=== PATIENT | female | born 1965 | race Two or more races ===

== ENCOUNTER 2017-01-08 17:54 | Inpatient (IN) | payer MEDICAID ==
[~2017-01-08] VITALS: Ht 162.6 cm; Wt 82.6 kg
[~2017-01-08 17:54] MED LIST: ASPI81TA10 PO; CLON0.2T PO; GLYB2.5T76 PO; HYDR-2595 PO; LISI-646 PO; LORA1TAB12 PO; METF-314 PO; OMEP20TA44 PO; RANI-226 PO; SIMV10TA84 PO
[2017-01-08] MEDS ORDERED: ONDANSETRON HCL 4 MG/2 ML VIAL IV ONE (19:00)
[2017-01-08] MEDS ORDERED: MORPHINE SULFATE 4 MG/ML SYRG IV ONE (19:00)
[2017-01-08 19:14] LABS: Basophils # (auto) 0.1 uL; Basophils % (auto) 0.4 % (0.0-2.0); Eosinophils # (auto) 0 uL; Eosinophils % (auto) 0.1 % (0.0-7.0); Hematocrit 48.3 % (36.0-46.0); Hemoglobin 16.4 g/dL (12.2-16.2); Lymphocytes # (auto) 1.9 uL; Lymphocytes % (auto) 10.1 % (10.0-50.0); Mean Corpuscular Hemoglobin 30.1 pg (28.0-32.0); Mean Corpuscular Volume 88.4 fL (80.0-100.0); Monocytes # (auto) 0.4 uL; Monocytes % (auto) 2.4 % (0.0-12.0); Neutrophils # (auto) 16.3 uL; Platelet Count (auto) 474 10^3/uL (140-450); White Blood Cell 18.7 10^3/uL (4.4-10.8)
[2017-01-08 19:35] LABS: Albumin 4.7 g/dL (3.4-5.0); BUN/Creatinine Ratio 8.7; Bilirubin, Total 0.6 mg/dL (0.2-1.0); Calcium 9.8 mg/dL (8.5-10.1); Magnesium 1.7 mg/dL (1.6-2.6); Potassium 3.4 mmol/L (3.5-5.1); Total Protein 8.8 g/dL (6.4-8.2)
[2017-01-08 19:55] LABS: Urine Bilirubin Negative (Negative); Urine Blood TRACE /uL (Negative); Urine Color Yellow (Yellow); Urine Mucus FEW (None Seen); Urine Nitrite Negative (Negative); Urine RBC 1 /hpf (0 - 4); Urine Squamous Epithelial Cell FEW /hpf (<5); Urine Urobilinogen Normal (Negative)
[2017-01-08 19:56] LABS: Urine Glucose 1+ mg/dL (Normal); Urine Ketone 1+ (Negative)
[2017-01-08] MEDS ORDERED: diphenhdrAMINE HCL 50 MG/1 ML VL ONE (20:28)
[2017-01-08] MEDS ORDERED: diphenhdrAMINE HCL 50 MG/1 ML VL IV ONE (20:45)
[2017-01-08] MEDS ORDERED: methylPREDNISolone SOD SUCC 125 MG/2 ML VL IV ONE (21:00)
[2017-01-08] MEDS ORDERED: cloNIDine HCL 0.1 MG TAB ONE (21:22)
[2017-01-08] MEDS ORDERED: cloNIDine HCL 0.1 MG TAB PO ONE (21:30)
[2017-01-08] MEDS ORDERED: LABETALOL HCL 200 MG TAB PO ONE (22:15)
[2017-01-09] MEDS: NICARDIPINE 25MG/250ML BAG KIT 250 ML IV SCH ×2 (00:14→04:41)
[2017-01-09] MEDS ORDERED: ACETAMINOPHEN 325 MG TAB PO PRN (02:00)
[2017-01-09] MEDS ORDERED: NITROGLYCERIN 0.4 MG SL TAB SL PRN (02:00)
[2017-01-09] MEDS ORDERED: ONDANSETRON HCL 4 MG/2 ML VIAL IV PRN (02:00)
[2017-01-09] MEDS ORDERED: POTASSIUM CHL 20 Meq TABLET PO ONE (02:00)
[2017-01-09] MEDS ORDERED: DEXTROSE (50%) 50ML SYRG IV PRN (02:00)
[2017-01-09] MEDS: KETOROLAC TROMETH 30 MG/ML 1ML VIAL IV PRN ×3 (02:19→18:15)
[2017-01-09] MEDS: cefTRIAXone 1GM/50ML D5W 50 ML IV SCH (02:41)
[2017-01-09] MEDS: InsuLIN REG 1unit/0.01ml Soln (100units/ml) SC SCH ×3 (05:54→17:45)
[2017-01-09] MEDS: ACCU-CHEK COMFORT CURVE STRIP VI SCH ×3 (05:55→17:44)
[2017-01-09] MEDS: HYDROcodone-ACET 5/325MG TAB PO PRN ×3 (08:38→20:52)
[2017-01-09] MEDS ORDERED: FAMOTIDINE 20 MG TAB PO SCH (10:00)
[2017-01-09] MEDS: BENAZEPRIL HCL 10 MG TAB PO SCH (10:00)
[2017-01-09] MEDS: cloNIDine HCL 0.1 MG TAB PO SCH ×2 (10:00→22:00)
[2017-01-09] MEDS: ENOXAPARIN SOD 40 MG/0.4 ML SYRINGE SC SCH (10:25)
[2017-01-09 10:27] VITALS: BP 98/73
[2017-01-09 12:30] VITALS: BP 106/65
[2017-01-09 13:25] LABS: Temperature: 23.1 C (20.0-25.0)
[2017-01-09] MEDS ORDERED: SODIUM CHLORIDE 0.9% 1,000 ML IV SCH (15:00)
[2017-01-09] MEDS ORDERED: FUROSEMIDE 40 MG/4 ML VIAL IV ONE (17:15)
[2017-01-09] MEDS ORDERED: POTASSIUM CHL 10% (20 MEQ/15ML) ORAL SOLN PO ONE (17:15)
[2017-01-09 17:54] VITALS: BP 96/58
[2017-01-09] MEDS ORDERED: ONDA4TAB5 PO (18:25)
[2017-01-09 20:00] VITALS: BP 96/58
[2017-01-09] MEDS: LORazepam 0.5 MG TAB PO PRN (20:51)
[2017-01-09 21:58] VITALS: BP 104/60
[2017-01-09] MEDS: TEMAZEPAM 15 MG CAP PO PRN (22:17)
[2017-01-09] MEDS: PANTOPRAZOLE 40 MG TAB PO SCH (22:17)
[2017-01-10] VITALS (7 sets, daily range): BP systolic 92–195; BP diastolic 52–115
[2017-01-10] MEDS: KETOROLAC TROMETH 30 MG/ML 1ML VIAL IV PRN ×3 (00:24→17:34)
[2017-01-10] MEDS: ACCU-CHEK COMFORT CURVE STRIP VI SCH ×4 (00:25→18:02)
[2017-01-10] MEDS: cefTRIAXone 1GM/50ML D5W 50 ML IV SCH (03:10)
[2017-01-10] MEDS: InsuLIN REG 1unit/0.01ml Soln (100units/ml) SC SCH ×4 (05:59→18:02)
[2017-01-10] MEDS ORDERED: cloNIDine HCL 0.1 MG TAB PO ONE (06:15)
[2017-01-10 07:08] LABS: Hematocrit 48.7 % (36.0-46.0); Mean Corpuscular Hemoglobin 29.5 pg (28.0-32.0); Mean Corpuscular Hgb Conc. 32.9 g/dL (32.0-36.0); Mean Corpuscular Volume 89.6 fL (80.0-100.0); Platelet Count (auto) 480 10^3/uL (140-450); Red Cell Distribution Width 15.2 % (11.6-16.0); SUSPECT VIEW TRANSMISSION; White Blood Cell 24.4 10^3/uL (4.4-10.8)
[2017-01-10 07:13] LABS: Metamyelocytes % 0; Myelocytes % 0; Promyelocytes % 0; Reactive Lymphocytes 0
[2017-01-10 07:25] LABS: Albumin 4.1 g/dL (3.4-5.0); BUN/Creatinine Ratio 29.4; Bilirubin, Total 0.4 mg/dL (0.2-1.0); Calcium 9.4 mg/dL (8.5-10.1); Magnesium 2.2 mg/dL (1.6-2.6); Potassium 4.4 mmol/L (3.5-5.1); Total Protein 8.4 g/dL (6.4-8.2)
[2017-01-10] MEDS: PANTOPRAZOLE 40 MG TAB PO SCH ×2 (08:26→21:19)
[2017-01-10] MEDS: ENOXAPARIN SOD 40 MG/0.4 ML SYRINGE SC SCH (08:26)
[2017-01-10] MEDS: BENAZEPRIL HCL 10 MG TAB PO SCH (08:27)
[2017-01-10] MEDS: cloNIDine HCL 0.1 MG TAB PO SCH ×2 (08:27→22:00)
[2017-01-10 08:30] LABS: Platelet Estimate Adequate
[2017-01-10] MEDS: HYDROcodone-ACET 5/325MG TAB PO PRN ×3 (08:48→21:21)
[2017-01-10] MEDS ORDERED: LISINOPRIL 20 MG TAB PO ONE ×2 (11:30→13:00)
[2017-01-10] MEDS ORDERED: ATORVASTATIN 20 MG TAB PO ONE (12:45)
[2017-01-10] MEDS ORDERED: METOPROLOL TARTRATE 1MG/1ML-5ML VIAL IV ONE (15:42)
[2017-01-10] MEDS ORDERED: NITROGLYCERIN 0.4 MG SL TAB SL ONE (15:42)
[2017-01-10] MEDS ORDERED: IOHEXOL 350 MG/ML 100ML IJ ONE (16:00)
[2017-01-10] MEDS: LORazepam 0.5 MG TAB PO PRN (18:57)
[2017-01-10] MEDS: TEMAZEPAM 15 MG CAP PO PRN (21:19)
[2017-01-10] MEDS: METOPROLOL TARTRATE 25 MG TAB PO SCH (22:00)
[2017-01-11] MEDS: cefTRIAXone 1GM/50ML D5W 50 ML IV SCH (04:56)
[2017-01-11 05:00] VITALS: BP 102/47
[2017-01-11] MEDS: ACCU-CHEK COMFORT CURVE STRIP VI SCH ×2 (06:00)
[2017-01-11] MEDS: InsuLIN REG 1unit/0.01ml Soln (100units/ml) SC SCH ×2 (06:00)
[2017-01-11 07:37] LABS: Basophils # (auto) 0 uL; Basophils % (auto) 0.5 % (0.0-2.0); Eosinophils # (auto) 0.1 uL; Eosinophils % (auto) 0.8 % (0.0-7.0); Hematocrit 45.4 % (36.0-46.0); Hemoglobin 15.2 g/dL (12.2-16.2); Lymphocytes # (auto) 3.5 uL; Lymphocytes % (auto) 35.8 % (10.0-50.0); Mean Corpuscular Hemoglobin 29.8 pg (28.0-32.0); Mean Corpuscular Hgb Conc. 33.5 g/dL (32.0-36.0); Mean Corpuscular Volume 89.2 fL (80.0-100.0); Mean Platelet Volume 9.5 fL (7.4-10.4); Monocytes # (auto) 0.6 uL; Monocytes % (auto) 6.2 % (0.0-12.0); Neutrophils # (auto) 5.6 uL; Neutrophils % (auto) 56.7 % (37.0-80.0); Platelet Count (auto) 408 10^3/uL (140-450); Red Cell Distribution Width 15.2 % (11.6-16.0); White Blood Cell 9.9 10^3/uL (4.4-10.8)
[2017-01-11 08:00] VITALS: BP 108/65
[2017-01-11 08:03] LABS: BUN/Creatinine Ratio 29.2; Calcium 9.3 mg/dL (8.5-10.1); Potassium 4.2 mmol/L (3.5-5.1)
[2017-01-11] MEDS: KETOROLAC TROMETH 30 MG/ML 1ML VIAL IV PRN (08:04)
[2017-01-11 09:00] VITALS: BP 108/65
[2017-01-11] MEDS ORDERED: LISINOPRIL 20 MG TAB PO SCH (10:00)
[2017-01-11] MEDS: HYDROcodone-ACET 5/325MG TAB PO PRN (10:23)
[2017-01-11] MEDS: ENOXAPARIN SOD 40 MG/0.4 ML SYRINGE SC SCH (10:31)
[2017-01-11] MEDS: METOPROLOL TARTRATE 25 MG TAB PO SCH (10:32)
[2017-01-11] MEDS: cloNIDine HCL 0.1 MG TAB PO SCH (10:32)
[2017-01-11] MEDS: PANTOPRAZOLE 40 MG TAB PO SCH (10:33)
[2017-01-11 13:00] VITALS: BP 107/65
== END 2017-01-11 13:35 | disposition left against medical advice (07) | DRG 720 ==
LOC: ER 17:54 → EDBD 17:54 → TELE 17:55 → WEST WING 01-09 09:25 → TELE-WESTW 01-09 20:17
PROVIDERS: ADMIT Nurse Practitioner; ATTEND Internal Medicine
DX: A41.9 Sepsis, unspecified organism (principal); N17.0 Acute kidney failure with tubular necrosis; I16.1 Hypertensive emergency; N39.0 Urinary tract infection, site not specified; E11.21 Type 2 diabetes mellitus with diabetic nephropathy; F31.9 Bipolar disorder, unspecified; F41.9 Anxiety disorder, unspecified; E78.5 Hyperlipidemia, unspecified; F12.90 Cannabis use, unspecified, uncomplicated; K21.9 Gastro-esophageal reflux disease without esophagitis; K44.9 Diaphragmatic hernia without obstruction or gangrene; I50.9 Heart failure, unspecified; M94.0 Chondrocostal junction syndrome [Tietze]; G89.29 Other chronic pain; K57.30 Diverticulosis of large intestine without perforation or abscess without bleeding; D72.823 Leukemoid reaction; F17.210 Nicotine dependence, cigarettes, uncomplicated; R07.89 Other chest pain; F19.10 Other psychoactive substance abuse, uncomplicated; E11.22 Type 2 diabetes mellitus with diabetic chronic kidney disease; I13.0 Hypertensive heart and chronic kidney disease with heart failure and stage 1 through stage 4 chronic kidney disease, or unspecified chronic kidney disease; N18.9 Chronic kidney disease, unspecified; Z71.6 Tobacco abuse counseling; Z82.3 Family history of stroke; Z82.49 Family history of ischemic heart disease and other diseases of the circulatory system; Z88.6 Allergy status to analgesic agent; Z87.442 Personal history of urinary calculi; Z87.11 Personal history of peptic ulcer disease
CPT/HCPCS: 36415; 70450; 71020; 74176; 75574; 80048; 80053; 80061; 81001; 82962; 83036; 83690; 83735; 83880; 84443; 84484; 85007; 85025; 85027; 85048; 85379; 87040; 87081; 87086; 93005; 93306; 96374; 96375; G0434; J0696; J1815; J1885; J2405

== ENCOUNTER 2017-02-06 05:30 | Observation (INO) | payer MEDICAID ==
[~2017-02-06] VITALS: Ht 157.5 cm; Wt 83.9 kg
[~2017-02-06 05:30] MED LIST changes: -LISI-646 PO; +ONDA4TAB5 PO
[2017-02-06 06:23] VITALS: BP 235/126
[2017-02-06 06:25] LABS: Urine Bilirubin Negative (Negative); Urine Blood Negative /uL (Negative); Urine Color Yellow (Yellow); Urine Mucus FEW (None Seen); Urine Nitrite Negative (Negative); Urine RBC 1 /hpf (0 - 4); Urine Squamous Epithelial Cell FEW /hpf (<5); Urine Urobilinogen Normal (Negative); Urine pH 5.5 (5.0-8.0)
[2017-02-06 06:26] LABS: Urine Glucose 2+ mg/dL (Normal); Urine Ketone 1+ (Negative)
[2017-02-06] MEDS ORDERED: SODIUM CHLORIDE 0.9% 1,000 ML IVB ONE (07:08)
[2017-02-06] MEDS ORDERED: PROCHLORPERAZINE EDISYLATE 5 MG/ML 2ML VIAL IV ONE (07:15)
[2017-02-06] MEDS ORDERED: NALBUPHINE HCL 10 MG/1ml INJECTION IV ONE (07:15)
[2017-02-06] MEDS ORDERED: LABETALOL HCL 5 MG/ML 4ML SYRINGE IV ONE (07:15)
[2017-02-06] MEDS ORDERED: cloNIDine HCL 0.1 MG TAB PO ONE (07:15)
[2017-02-06] MEDS ORDERED: PANTOPRAZOLE 40 MG TAB PO ONE (07:15)
[2017-02-06 07:18] LABS: Basophils # (auto) 0 uL; Basophils % (auto) 0.1 % (0.0-2.0); Eosinophils # (auto) 0 uL; Eosinophils % (auto) 0.1 % (0.0-7.0); Hematocrit 51.2 % (36.0-46.0); Hemoglobin 17.6 g/dL (12.2-16.2); Lymphocytes # (auto) 1.7 uL; Lymphocytes % (auto) 10.1 % (10.0-50.0); Mean Corpuscular Hemoglobin 30.3 pg (28.0-32.0); Mean Corpuscular Hgb Conc. 34.3 g/dL (32.0-36.0); Mean Corpuscular Volume 88.4 fL (80.0-100.0); Mean Platelet Volume 9.1 fL (7.4-10.4); Monocytes # (auto) 0.3 uL; Monocytes % (auto) 1.6 % (0.0-12.0); Neutrophils # (auto) 14.6 uL; Neutrophils % (auto) 88.1 % (37.0-80.0); Platelet Count (auto) 421 10^3/uL (140-450); Red Cell Distribution Width 14.4 % (11.6-16.0); SUSPECT VIEW TRANSMISSION; White Blood Cell 16.5 10^3/uL (4.4-10.8)
[2017-02-06 07:42] LABS: Albumin 4.4 g/dL (3.4-5.0); BUN/Creatinine Ratio 10.9; Bilirubin, Total 0.6 mg/dL (0.2-1.0); Calcium 9.9 mg/dL (8.5-10.1); Potassium 4.8 mmol/L (3.5-5.1)
== END 2017-02-06 08:52 | disposition left against medical advice (07) | DRG 249 ==
LOC: ER 05:30 → EDBD 05:30 → OVERFLOW 07:10 → EDUNIT# 07:10 → ER 08:52
PROVIDERS: ADMIT Emergency Medicine; ATTEND Emergency Medicine
DX: K52.9 Noninfective gastroenteritis and colitis, unspecified (principal); I10 Essential (primary) hypertension; E11.9 Type 2 diabetes mellitus without complications; F41.9 Anxiety disorder, unspecified; F17.210 Nicotine dependence, cigarettes, uncomplicated; F19.10 Other psychoactive substance abuse, uncomplicated; F31.9 Bipolar disorder, unspecified; R11.2 Nausea with vomiting, unspecified
CPT/HCPCS: 36415; 80053; 80307; 81001; 82150; 83690; 85025; 99285; G0378

== ENCOUNTER 2017-02-06 09:07 | Emergency (ER) | payer MEDICAID ==
[~2017-02-06] VITALS: Ht 157.5 cm; Wt 83.9 kg
[2017-02-06] MEDS ORDERED: cloNIDine HCL 0.1 MG TAB PO ONE (09:30)
[2017-02-06] MEDS ORDERED: LABETALOL HCL 5 MG/ML 4ML SYRINGE IV ONE (09:30)
[2017-02-06 09:56] LABS: Basophils # (auto) 0.1 uL; Basophils % (auto) 0.5 % (0.0-2.0); Eosinophils # (auto) 0 uL; Hematocrit 53.2 % (36.0-46.0); Hemoglobin 17.9 g/dL (12.2-16.2); Lymphocytes # (auto) 1.4 uL; Lymphocytes % (auto) 8.1 % (10.0-50.0); Mean Corpuscular Hemoglobin 29.9 pg (28.0-32.0); Mean Corpuscular Hgb Conc. 33.5 g/dL (32.0-36.0); Mean Corpuscular Volume 89.1 fL (80.0-100.0); Mean Platelet Volume 9.3 fL (7.4-10.4); Monocytes # (auto) 0.2 uL; Monocytes % (auto) 1.3 % (0.0-12.0); Neutrophils # (auto) 15.2 uL; Neutrophils % (auto) 90.1 % (37.0-80.0); Platelet Count (auto) 557 10^3/uL (140-450); Red Cell Distribution Width 14.9 % (11.6-16.0); White Blood Cell 16.9 10^3/uL (4.4-10.8)
[2017-02-06] MEDS ORDERED: SODIUM CHLORIDE 0.9% 1,000 ML IVB ONE (10:22)
[2017-02-06 10:27] LABS: Albumin 4.7 g/dL (3.4-5.0); BUN/Creatinine Ratio 10.7; Bilirubin, Total 0.5 mg/dL (0.2-1.0); Calcium 10.1 mg/dL (8.5-10.1); Potassium 3.7 mmol/L (3.5-5.1); Total Protein 9.3 g/dL (6.4-8.2)
[2017-02-06] MEDS ORDERED: PROCHLORPERAZINE EDISYLATE 5 MG/ML 2ML VIAL IV ONE (10:30)
[2017-02-06] MEDS ORDERED: NALBUPHINE HCL 10 MG/1ml INJECTION IV ONE ×2 (10:30→12:30)
[2017-02-06] MEDS ORDERED: hydrALAZINE HCL 20 MG/ML VL IV ONE (11:15)
[2017-02-06 14:51] VITALS: BP 136/80
== END 2017-02-06 15:13 | disposition left against medical advice (07) ==
LOC: ER 11:52
DX: E11.65 Type 2 diabetes mellitus with hyperglycemia (principal); I10 Essential (primary) hypertension; E11.9 Type 2 diabetes mellitus without complications; K21.9 Gastro-esophageal reflux disease without esophagitis; K57.92 Diverticulitis of intestine, part unspecified, without perforation or abscess without bleeding; F12.10 Cannabis abuse, uncomplicated; Z87.11 Personal history of peptic ulcer disease; Z98.51 Tubal ligation status; Z88.6 Allergy status to analgesic agent; Z53.29 Procedure and treatment not carried out because of patient's decision for other reasons
CPT/HCPCS: 36415; 71020; 80053; 84484; 85025; 93005; 94761; 96361; 96374; 96375; 96376; 99285; J0360; J0780; J2300; J3490; J7030

== ENCOUNTER 2017-10-31 05:50 | Inpatient (IN) | payer MEDICAID ==
[~2017-10-31] VITALS: Ht 157.5 cm; Wt 84.3 kg
[~2017-10-31 05:50] MED LIST changes: -GLYB2.5T76 PO; +GLYB2.5T8 PO; -METF-314 PO; +METF-371 PO
[2017-10-31 07:14] LABS: Basophils # (auto) 0.1 uL; Basophils % (auto) 0.9 % (0.0-2.0); Eosinophils # (auto) 0.1 uL; Eosinophils % (auto) 0.9 % (0.0-7.0); Hematocrit 45.4 % (36.0-46.0); Lymphocytes # (auto) 2.4 uL; Lymphocytes % (auto) 15.7 % (10.0-50.0); Mean Corpuscular Hemoglobin 29.3 pg (28.0-32.0); Mean Corpuscular Volume 88.7 fL (80.0-100.0); Monocytes # (auto) 0.6 uL; Neutrophils # (auto) 12.1 uL; Neutrophils % (auto) 78.5 % (37.0-80.0); Platelet Count (auto) 446 10^3/uL (140-450); Red Blood Cells 5.12 10^6/uL (4.0-5.20); Red Cell Distribution Width 15.3 % (11.8-14.3); White Blood Cell 15.4 10^3/uL (4.4-10.8)
[2017-10-31 07:36] LABS: INR 0.92 (0.9-1.15); Partial Thromboplastin Time 26.7 sec (22.64-33.71)
[2017-10-31 07:47] LABS: Albumin 4.5 g/dL (3.4-5.0); BUN/Creatinine Ratio 13.6; Bilirubin, Total 0.4 mg/dL (0.2-1.0); Calcium 9.7 mg/dL (8.5-10.1); Potassium 3.5 mmol/L (3.5-5.1); Total Protein 8.4 g/dL (6.4-8.2)
[2017-10-31] MEDS ORDERED: PANTOPRAZOLE 40 MG/10 ML VIAL IV STA (07:51)
[2017-10-31] MEDS ORDERED: SODIUM CHLORIDE 0.9% 1,000 ML IVB ONE (07:51)
[2017-10-31] MEDS ORDERED: HYDROmorphone HCL 2 MG/ML VL IV ONE ×2 (08:00→11:00)
[2017-10-31] MEDS ORDERED: PROCHLORPERAZINE EDISYLATE 5 MG/ML 2ML VIAL IV ONE (08:00)
[2017-10-31] MEDS ORDERED: MORPHINE SULFATE 4 MG/ML SYR/VIAL IV ONE (08:00)
[2017-10-31 09:32] LABS: Urine Bacteria NONE SEEN /hpf (None Seen); Urine Blood Negative /uL (Negative); Urine Mucus FEW (None Seen); Urine Specific Gravity 1.012 (1.001-1.035); Urine WBC 3 /hpf (0 - 5)
[2017-10-31] MEDS ORDERED: cloNIDine HCL 0.1 MG TAB PO ONE (10:45)
[2017-10-31] MEDS ORDERED: HYDROcodone-ACET 5/325MG TAB PO PRN (11:00)
[2017-10-31] MEDS ORDERED: DEXTROSE (50%) 50ML SYRG IV PRN (11:00)
[2017-10-31] MEDS ORDERED: PANTOPRAZOLE 40 MG/10 ML VIAL IV ONE (11:00)
[2017-10-31] MEDS ORDERED: LORazepam 0.5 MG TAB PO PRN (11:00)
[2017-10-31] MEDS ORDERED: ACETAMINOPHEN 500 MG TAB PO PRN (11:00)
[2017-10-31] MEDS ORDERED: cefTRIAXone 1GM/10ml IVPUSH 10 ML IV ONE (11:00)
[2017-10-31] MEDS ORDERED: NITROGLYCERIN 0.4 MG SL TAB SL PRN (11:00)
[2017-10-31] MEDS ORDERED: TEMAZEPAM 15 MG CAP PO PRN (11:00)
[2017-10-31] MEDS ORDERED: ONDANSETRON HCL 4 MG/2 ML VIAL IV ONE (11:00)
[2017-10-31] MEDS: SODIUM CHLORIDE 0.9% 1,000 ML IV SCH ×2 (11:33→22:02)
[2017-10-31] MEDS: InsuLIN REG 1unit/0.01ml Soln (100units/ml) SC SCH ×3 (11:50→22:03)
[2017-10-31] MEDS: ACCU-CHEK COMFORT CURVE STRIP VI SCH ×3 (11:50→22:03)
[2017-10-31 11:51] LABS: Alcohol, Urine < 3.0 mg/dL (0-5); Amphetamine Screen, Urine NEGATIVE (NEGATIVE); Barbiturate Scree,Urine NEGATIVE (NEGATIVE); Benzodiazephine Screen, Urine POSITIVE (NEGATIVE); Cannabinoid Screen, Urine POSITIVE (NEGATIVE); Cocaine Screen, Urine NEGATIVE (NEGATIVE); Opiate Scree,Urine NEGATIVE (NEGATIVE); Phencyclidine Screen, Urine NEGATIVE (NEGATIVE)
[2017-10-31] MEDS: SUCRALFATE 1 GM/10 ML ORAL SUSP PO SCH ×3 (11:56→22:02)
[2017-10-31] MEDS ORDERED: LABETALOL HCL 5 MG/ML 4ML SYRINGE IV ONE (12:39)
[2017-10-31] MEDS ORDERED: LABETALOL HCL 5 MG/ML ML 20ML VIAL IV PRN (12:45)
[2017-10-31 12:55] LABS: CRP High Sensitivity 0.98 mg/dL (< 0.3)
[2017-10-31] MEDS: PROMETHAZINE HCL 25 MG/ML 1ML IV PRN (17:38)
[2017-10-31] MEDS: HYDROmorphone HCL 2 MG/ML VL IV PRN ×2 (17:38→22:02)
[2017-10-31] MEDS ORDERED: TEMA30CA PO (19:21)
[2017-10-31] MEDS ORDERED: METF-371 PO (19:21)
[2017-10-31] MEDS ORDERED: OMEP20CA74 PO (19:21)
[2017-10-31] MEDS ORDERED: BENA10TA9 PO (19:21)
[2017-10-31 22:00] VITALS: BP 103/70
[2017-10-31] MEDS ORDERED: ATORVASTATIN 20 MG TAB PO SCH (22:00)
[2017-10-31] MEDS ORDERED: PATIENTS OWN MEDICATION (Simvastatin 10 MG) PO SCH (22:00)
[2017-10-31] MEDS: PANTOPRAZOLE 40 MG/10 ML VIAL IV SCH (22:02)
[2017-11-01] MEDS: HYDROmorphone HCL 2 MG/ML VL IV PRN ×2 (04:26→09:18)
[2017-11-01 05:00] VITALS: BP 102/61
[2017-11-01] MEDS: SUCRALFATE 1 GM/10 ML ORAL SUSP PO SCH ×2 (06:27→12:04)
[2017-11-01] MEDS: SODIUM CHLORIDE 0.9% 1,000 ML IV SCH (06:27)
[2017-11-01] MEDS: ACCU-CHEK COMFORT CURVE STRIP VI SCH ×2 (06:28→12:00)
[2017-11-01] MEDS: InsuLIN REG 1unit/0.01ml Soln (100units/ml) SC SCH ×2 (06:28→12:00)
[2017-11-01 08:00] VITALS: BP 127/71
[2017-11-01 08:00] LABS: Basophils # (auto) 0.1 uL; Basophils % (auto) 1.1 % (0.0-2.0); Eosinophils # (auto) 0.2 uL; Eosinophils % (auto) 1.6 % (0.0-7.0); Hemoglobin 13.4 g/dL (12.2-16.2); Lymphocytes # (auto) 4.3 uL; Lymphocytes % (auto) 40.6 % (10.0-50.0); Mean Corpuscular Hemoglobin 29.4 pg (28.0-32.0); Mean Corpuscular Hgb Conc. 33.6 g/dL (32.0-36.0); Mean Corpuscular Volume 87.4 fL (80.0-100.0); Monocytes # (auto) 0.7 uL; Monocytes % (auto) 6.6 % (0.0-12.0); Neutrophils # (auto) 5.4 uL; Neutrophils % (auto) 50.1 % (37.0-80.0); Nucleated Red Blood Cells % 0.1 %; Platelet Count (auto) 339 10^3/uL (140-450); Red Blood Cells 4.57 10^6/uL (4.0-5.20); Red Cell Distribution Width 15.4 % (11.8-14.3); White Blood Cell 10.7 10^3/uL (4.4-10.8)
[2017-11-01 08:07] LABS: Amylase 44 U/L (25-115); Cholesterol 221 mg/dL (< 200); HDL Cholesterol 34 mg/dL (40-59); LDL Cholesterol 158 mg/dL (< 100); Lipase 155 U/L (73-393); Triglycerides 212 mg/dL (< 150)
[2017-11-01 08:20] LABS: Albumin 3.5 g/dL (3.4-5.0); BUN/Creatinine Ratio 17.3; Bilirubin, Total 0.5 mg/dL (0.2-1.0); Calcium 8.1 mg/dL (8.5-10.1); Potassium 3.2 mmol/L (3.5-5.1); Total Protein 6.9 g/dL (6.4-8.2)
[2017-11-01 09:00] VITALS: BP 127/71
[2017-11-01] MEDS ORDERED: cefTRIAXone 1GM/10ml IVPUSH 10 ML IV SCH (09:00)
[2017-11-01] MEDS: PANTOPRAZOLE 40 MG/10 ML VIAL IV SCH (09:17)
[2017-11-01] MEDS: PROMETHAZINE HCL 25 MG/ML 1ML IV PRN (09:18)
[2017-11-01] MEDS ORDERED: PANTOPRAZOLE 40 MG/10 ML VIAL IV SCH (10:00)
[2017-11-01] MEDS ORDERED: ASPirin-EC 81 mg tab PO SCH (10:00)
[2017-11-01 12:11] VITALS: BP 120/73
[2017-11-01 14:08] VITALS: BP 120/79
== END 2017-11-01 14:24 | disposition home or self-care (01) | DRG 249 ==
LOC: ER 05:50 → EDBD 05:50 → TELE 05:51 → TELE-EAST 18:53
PROVIDERS: ADMIT Internal Medicine; ATTEND Internal Medicine
DX: A08.4 Viral intestinal infection, unspecified (principal); E11.65 Type 2 diabetes mellitus with hyperglycemia; K76.0 Fatty (change of) liver, not elsewhere classified; I10 Essential (primary) hypertension; I25.10 Atherosclerotic heart disease of native coronary artery without angina pectoris; K57.30 Diverticulosis of large intestine without perforation or abscess without bleeding; N39.0 Urinary tract infection, site not specified; E78.5 Hyperlipidemia, unspecified; F12.90 Cannabis use, unspecified, uncomplicated; F17.210 Nicotine dependence, cigarettes, uncomplicated; G47.00 Insomnia, unspecified; K44.9 Diaphragmatic hernia without obstruction or gangrene; F32.9 Major depressive disorder, single episode, unspecified; F41.9 Anxiety disorder, unspecified; R74.8 Abnormal levels of other serum enzymes; K21.9 Gastro-esophageal reflux disease without esophagitis; Z82.3 Family history of stroke; Z82.49 Family history of ischemic heart disease and other diseases of the circulatory system; Z87.11 Personal history of peptic ulcer disease; Z87.442 Personal history of urinary calculi; Z88.5 Allergy status to narcotic agent; Z79.899 Other long term (current) drug therapy; Z98.51 Tubal ligation status; Z79.82 Long term (current) use of aspirin; Z79.84 Long term (current) use of oral hypoglycemic drugs
CPT/HCPCS: 36415; 71045; 74176; 76705; 80053; 80061; 80307; 81001; 82150; 82550; 82962; 83036; 83690; 84484; 84702; 85025; 85379; 85610; 85652; 85730; 86141; 87086; 93005; 94761; 96361; 96374; 96375; 96376; C9113; J1815; J2405; J3490

== ENCOUNTER 2018-08-25 06:59 | Emergency (ER) | payer MEDICAID ==
[~2018-08-25] VITALS: Ht 157.5 cm; Wt 81.6 kg
[~2018-08-25 06:59] MED LIST changes: +BENA10TA9 PO; -CLON0.2T PO; -LORA1TAB12 PO; +OMEP20CA74 PO; -OMEP20TA44 PO; -ONDA4TAB5 PO; -RANI-226 PO; +TEMA30CA PO
[2018-08-25] MEDS ORDERED: SODIUM CHLORIDE 0.9% 1,000 ML IV ONE (07:25)
[2018-08-25 08:01] LABS: Albumin 3.4 g/dL (3.4-5.0); Anion Gap 12 (5-15); Blood Urea Nitrogen 11 mg/dL (7-18); Calcium 9.1 mg/dL (8.5-10.1); Carbon Dioxide 21 mmol/L (21-32); Chloride 106 mmol/L (98-107); Glucose 126 mg/dL (74-106); Magnesium 1.6 mg/dL (1.6-2.6); Potassium 4.8 mmol/L (3.5-5.1); Sodium 139 mmol/L (136-145)
[2018-08-25 08:03] LABS: Alanine Aminotransferase 22 U/L (13-56); Aspartate Aminotransferase 32 U/L (15-37); BUN/Creatinine Ratio 15.5; GFR African American 112 mL/min; GFR Non-African American 92 mL/min
[2018-08-25 08:07] LABS: Alkaline Phosphatase 124 U/L (45-117); Bilirubin, Total 0.3 mg/dL (0.2-1.0)
[2018-08-25 08:10] LABS: Urine Bacteria FEW /hpf (None Seen); Urine Blood Negative /uL (Negative); Urine WBC 5 /hpf (0 - 5)
[2018-08-25 09:08] LABS: Basophils # (auto) 0.1 uL; Basophils % (auto) 1.5 % (0.0-2.0); Eosinophils # (auto) 0.6 uL; Eosinophils % (auto) 6.6 % (0.0-7.0); Hematocrit 35.4 % (36.0-46.0); Hemoglobin 11.6 g/dL (12.2-16.2); Lymphocytes # (auto) 2.2 uL; Mean Corpuscular Hemoglobin 28.4 pg (28.0-32.0); Mean Corpuscular Hgb Conc. 32.9 g/dL (32.0-36.0); Mean Corpuscular Volume 86.2 fL (80.0-100.0); Monocytes # (auto) 0.5 uL; Monocytes % (auto) 5.8 % (0.0-12.0); Neutrophils # (auto) 5.8 uL; Neutrophils % (auto) 62.1 % (37.0-80.0); Platelet Count (auto) 330 10^3/uL (140-450); White Blood Cell 9.3 10^3/uL (4.4-10.8)
[2018-08-25 09:56] VITALS: BP 144/91
== END 2018-08-25 09:57 | disposition home or self-care (01) ==
LOC: ER 06:59
DX: E11.65 Type 2 diabetes mellitus with hyperglycemia (principal); I10 Essential (primary) hypertension; K21.9 Gastro-esophageal reflux disease without esophagitis; F17.210 Nicotine dependence, cigarettes, uncomplicated; F12.10 Cannabis abuse, uncomplicated; Z88.5 Allergy status to narcotic agent; Z79.82 Long term (current) use of aspirin; Z79.84 Long term (current) use of oral hypoglycemic drugs; Z79.899 Other long term (current) drug therapy
CPT/HCPCS: 36415; 80053; 81001; 82962; 83735; 84484; 85025; 93005; 96360; 99285; J7030

== ENCOUNTER 2019-02-09 09:01 | Inpatient (IN) | payer MEDICAID ==
[~2019-02-09] VITALS: Ht 154.9 cm; Wt 81.8 kg
[2019-02-09] VITALS (33 sets, daily range): BP systolic 86–158; BP diastolic 53–112
[2019-02-09 09:50] LABS: Basophils # (auto) 0.2 uL; Basophils % (auto) 1.2 % (0.0-2.0); Eosinophils # (auto) 0 uL; Eosinophils % (auto) 0.3 % (0.0-7.0); Hematocrit 38.3 % (36.0-46.0); Hemoglobin 12.5 g/dL (12.2-16.2); Lymphocytes # (auto) 2.3 uL; Lymphocytes % (auto) 17.2 % (10.0-50.0); Mean Corpuscular Hemoglobin 26.2 pg (28.0-32.0); Mean Corpuscular Hgb Conc. 32.6 g/dL (32.0-36.0); Mean Corpuscular Volume 80.4 fL (80.0-100.0); Monocytes # (auto) 0.6 uL; Monocytes % (auto) 4.1 % (0.0-12.0); Neutrophils # (auto) 10.5 uL; Neutrophils % (auto) 77.2 % (37.0-80.0); Red Blood Cells 4.76 10^6/uL (4.0-5.20); Red Cell Distribution Width 17.6 % (11.8-14.3); White Blood Cell 13.6 10^3/uL (4.4-10.8)
[2019-02-09] MEDS ORDERED: SODIUM CHLORIDE 0.9% 1,000 ML IV ONE ×2 (09:56)
[2019-02-09] MEDS ORDERED: ONDANSETRON HCL 4 MG/2 ML VIAL ONE (09:57)
[2019-02-09 09:59] LABS: Chloride 110 mmol/L (98-107); Potassium 3.8 mmol/L (3.5-5.1); Sodium 138 mmol/L (136-145)
[2019-02-09] MEDS ORDERED: ONDANSETRON HCL 4 MG/2 ML VIAL IV ONE (10:00)
[2019-02-09] MEDS ORDERED: MORPHINE SULFATE 4 MG/ML SYR/VIAL IV ONE (10:00)
[2019-02-09 10:03] LABS: Albumin 4.2 g/dL (3.4-5.0); Anion Gap 10 (5-15); Blood Urea Nitrogen 17 mg/dL (7-18); Calcium 9.7 mg/dL (8.5-10.1); Carbon Dioxide 18 mmol/L (21-32); Glucose 167 mg/dL (74-106)
[2019-02-09 10:08] LABS: Alanine Aminotransferase 16 U/L (13-56); Alkaline Phosphatase 146 U/L (45-117); Aspartate Aminotransferase 12 U/L (15-37); BUN/Creatinine Ratio 19.3; Bilirubin, Total 0.2 mg/dL (0.2-1.0); GFR African American 87 mL/min; GFR Non-African American 72 mL/min; Total Protein 9.4 g/dL (6.4-8.2)
[2019-02-09 10:50] LABS: Platelet Count (auto) 763 10^3/uL (140-450)
[2019-02-09] MEDS ORDERED: LABETALOL HCL 5 MG/ML ML 20ML VIAL IV ONE ×2 (11:00→12:45)
[2019-02-09 11:05] LABS: Urine Bacteria FEW /hpf (None Seen); Urine Blood Negative /uL (Negative); Urine Mucus FEW (None Seen); Urine Specific Gravity 1.023 (1.001-1.035); Urine WBC 19 /hpf (0 - 5)
[2019-02-09] MEDS ORDERED: MORPHINE SULF INJ 2 MG/ML SYRINGE 1ML IV ONE (11:45)
[2019-02-09] MEDS ORDERED: LORazepam 2MG/ML-1ML VIAL IV ONE (11:45)
[2019-02-09] MEDS ORDERED: PROMETHAZINE HCL 25 MG/ML 1ML IV ONE (11:45)
[2019-02-09] MEDS ORDERED: ACETAMINOPHEN 500 MG TAB PO PRN (12:45)
[2019-02-09] MEDS ORDERED: LABETALOL HCL 5 MG/ML ML 20ML VIAL IV PRN ×2 (12:45→14:30)
[2019-02-09] MEDS ORDERED: amLODIPine BESYLATE 5 MG TAB PO ONE (12:45)
[2019-02-09] MEDS ORDERED: MORPHINE SULF INJ 2 MG/ML SYRINGE 1ML IV PRN (12:45)
[2019-02-09] MEDS ORDERED: NITROGLYCERIN 0.4 MG SL TAB SL PRN (12:45)
[2019-02-09] MEDS ORDERED: ONDANSETRON HCL 4 MG/2 ML VIAL IV PRN (12:45)
[2019-02-09] MEDS ORDERED: DEXTROSE (50%) 50ML SYRG IV PRN (12:45)
[2019-02-09] MEDS ORDERED: cefTRIAXone 1GM/50ML D5W 50 ML IV ONE (13:00)
[2019-02-09] MEDS: METOPROLOL TARTRATE 50 MG TAB PO SCH ×2 (13:02→21:56)
[2019-02-09] MEDS ORDERED: PROMETHAZINE HCL 25 MG/ML 1ML ONE (13:47)
[2019-02-09] MEDS: PROMETHAZINE HCL 25 MG/ML 1ML IV PRN ×3 (13:50→23:52)
[2019-02-09] MEDS: PANTOPRAZOLE 40 MG TAB PO SCH ×2 (13:52→21:56)
[2019-02-09] MEDS: NICARDIPINE 25MG/250ML BAG KIT 250 ML IV SCH ×3 (14:39→22:22)
--- NOTE | 2019-02-09 15:30 | NUR ---
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 Patient transfered to bed, connected to ICU monitoring. Patient oriented to Luz Elena rice RN, unit, room, bed, and unit policies regarding patient care and visiting hours. All questions and concerns addressed, patient verbalized understanding. Bed placed in lowest position, call light in reach, side rails up x 3 as patient is legally blind to prevent unitentional fall from. Patient with 22 gauge IV to right FA infusing Cardene at 10 mg's, IV site is benign. Patient states that she is legally blind and can only see in a tunnel vision fashion. Attempted x 2 to obtain alternative IV access, unsuccessful.
[2019-02-09] MEDS: MORPHINE SULF INJ 2 MG/ML SYRINGE 1ML IV PRN ×2 (16:10→20:12)
--- NOTE | 2019-02-09 17:00 | NUR ---
AGITATION: Patient became acutely agitated stating that she wants to leave now as her blood pressure is "fine". Insisting that the marsh be removed, patient with no indication for Marsh catheter removed with balloon intact. Patient took self off of monitor and blood pressure monitoring. Call placed to patient's daughter Aditi, she states that no family member will be coming to picker and sorter load and unload the patient and that if she continues to insist on signing out she will have to sit at the hospital until tomorrow when she comes. Message from daughter relayed to patient, patient states that she will stay. Connected back to blood pressure monitoring and pulse ox, patient refusing ECG monitoring; discussed with patient need for cardiac monitoring while on vasoactive medications, patient agreed to accept monitoring.
[2019-02-09] MEDS: ACCU-CHEK COMFORT CURVE STRIP VI SCH ×2 (18:00→21:57)
[2019-02-09] MEDS: InsuLIN REG 1unit/0.01ml Soln (100units/ml) SC SCH ×2 (18:32→21:58)
--- NOTE | 2019-02-09 19:00 | NUR ---
OPENING NOTES ASSUMED CARE, A/O X 4 WITH NO SIGNS OF DISTRESS, RESPIRATIONS EVEN AND UNLABORED ON ROOM AIR, SAT 99%, CLEAR LUNG SOUNDS NOTED THROUGHOUT UPON AUSCULTATION, PIV IN THE RIGHT FOREARM INFUSING CARDENE DRIP @ 10 MG/HR, SBP 130-140'S. BED IN LOWEST POSITION WITH SIDE RAILS UP, CALL LIGHT WITHIN REACH AND BED ALARM ON. WILL CONTINUE CARE.
[2019-02-09] MEDS: QUEtiapine FUMARATE 100 MG TAB PO SCH (21:56)
[2019-02-09] MEDS: PRAVASTATIN SODIUM 20 MG TAB PO SCH (21:57)
--- NOTE | 2019-02-09 22:20 | NUR ---
AMBULATED TO THE TOILET FOR VOIDING WITH MINIMAL ASSIST, NO DISTRESS NOTED.
[2019-02-09] MEDS: TEMAZEPAM 15 MG CAP PO SCH (23:52)
[2019-02-10] VITALS (48 sets, daily range): BP systolic 112–169; BP diastolic 50–95
[2019-02-10] MEDS: MORPHINE SULF INJ 2 MG/ML SYRINGE 1ML IV PRN ×2 (00:17→06:56)
--- NOTE | 2019-02-10 02:00 | NUR ---
SAUL DRIP OFF, BP 128,67, HR 93
--- NOTE | 2019-02-10 02:06 | NUR ---
RESTING ON BED WITH HER EYES CLOSED. NO DISTRESS NOTED.
[2019-02-10 04:28] LABS: Basophils # (auto) 0.1 uL; Basophils % (auto) 0.8 % (0.0-2.0); Eosinophils # (auto) 0 uL; Eosinophils % (auto) 0.1 % (0.0-7.0); Hematocrit 36.3 % (36.0-46.0); Hemoglobin 11.6 g/dL (12.2-16.2); Lymphocytes # (auto) 2.7 uL; Lymphocytes % (auto) 18.4 % (10.0-50.0); Mean Corpuscular Hemoglobin 25.8 pg (28.0-32.0); Mean Corpuscular Hgb Conc. 32.1 g/dL (32.0-36.0); Mean Corpuscular Volume 80.2 fL (80.0-100.0); Monocytes # (auto) 0.8 uL; Monocytes % (auto) 5.2 % (0.0-12.0); Neutrophils # (auto) 10.9 uL; Neutrophils % (auto) 75.5 % (37.0-80.0); Nucleated Red Blood Cells % 0.1 %; Platelet Count (auto) 647 10^3/uL (140-450); Red Blood Cells 4.52 10^6/uL (4.0-5.20); Red Cell Distribution Width 17.4 % (11.8-14.3); White Blood Cell 14.5 10^3/uL (4.4-10.8)
[2019-02-10 05:03] LABS: Calcium 9.1 mg/dL (8.5-10.1); Potassium 3.2 mmol/L (3.5-5.1)
[2019-02-10 05:06] LABS: BUN/Creatinine Ratio 21.1
[2019-02-10] MEDS: NICARDIPINE 25MG/250ML BAG KIT 250 ML IV SCH ×2 (05:30→09:39)
--- NOTE | 2019-02-10 05:52 | NUR ---
PAGED THE HOSPITALIST FOR LAB RESULTS, K 3.2. AWAITING CALL BACK.
[2019-02-10] MEDS: ACCU-CHEK COMFORT CURVE STRIP VI SCH ×4 (06:22→21:57)
[2019-02-10] MEDS: InsuLIN REG 1unit/0.01ml Soln (100units/ml) SC SCH ×5 (06:23→21:57)
--- NOTE | 2019-02-10 06:27 | NUR ---
MICHELL QUINTANA CALLED BACK WITH NEW ORDER TO GIVE KCL 40 MEQ PO ONCE. WILL CARRY OUT AN ORDER.
[2019-02-10] MEDS: PROMETHAZINE HCL 25 MG/ML 1ML IV PRN (06:57)
[2019-02-10] MEDS ORDERED: POTASSIUM CHL 20 Meq TABLET PO ONE (07:30)
[2019-02-10] MEDS ORDERED: cefTRIAXone 1GM/50ML D5W 50 ML IV SCH (09:00)
[2019-02-10] MEDS: PANTOPRAZOLE 40 MG TAB PO SCH ×2 (09:37→21:56)
[2019-02-10] MEDS: QUEtiapine FUMARATE 100 MG TAB PO SCH ×2 (09:37→21:56)
[2019-02-10] MEDS: METOPROLOL TARTRATE 50 MG TAB PO SCH ×2 (09:38→21:56)
[2019-02-10] MEDS: BENAZEPRIL HCL 10 MG TAB PO SCH (09:39)
[2019-02-10] MEDS ORDERED: BENAZEPRIL HCL 10 MG TAB PO SCH (10:00)
[2019-02-10] MEDS: HYDROcodone-ACET 5/325MG TAB PO PRN ×2 (10:58→17:32)
[2019-02-10] MEDS: amLODIPine BESYLATE 5 MG TAB PO SCH (10:59)
[2019-02-10] MEDS ORDERED: PROMETHAZINE HCL 25 MG/ML 1ML IV PRN (13:15)
[2019-02-10] MEDS ORDERED: LEVOTHYROXINE SODIUM 50 MCG TAB PO ONE (13:15)
[2019-02-10] MEDS ORDERED: POTASSIUM CHL 20MEQ/100ML 100 ML IV ONE (13:30)
[2019-02-10] MEDS: LEVOFLOXACIN 500MG 100 ML IV SCH (14:27)
--- NOTE | 2019-02-10 15:25 | NUR ---
ICU patient trans to floor FELIX GONSALES transferred to [address] A via WHEEL CHAIR on radiation monitor. All patient personal belongings transferred with patient to receiving floor. Patient care transferred to RAQUEL HUSAIN.
--- NOTE | 2019-02-10 16:14 | NUR ---
RECEIVED PT TO FLOOR FROM ICU. PT RESTING QUIETLY IN BED, CALL [place] IN REACH, NO S/SX DISTRESS NOTED. WILL CONTINUE TO MONITOR.
--- NOTE | 2019-02-10 19:22 | NUR ---
Opening Shift Note Assumed care of patient, awake and alert x 4. No S/S of distress/SOB. Bed is in lowest position and locked. Call light within reach. Board updated. Tele box number matches monitor and leads are in correct placement. Instructed on POC and to call for assist PRN, will continue to monitor for changes Q1hr and PRN.
[2019-02-10] MEDS ORDERED: CLON0.1T PO (21:08)
[2019-02-10] MEDS ORDERED: LORA1TAB12 PO (21:08)
[2019-02-10] MEDS ORDERED: LEVO25TA6 PO (21:08)
--- NOTE | 2019-02-10 21:17 | NUR ---
Spoke to MD Hinds about patient's anxiety and he ordered Ativan 1 mg PO q 12 hrs PRN. Order repeated, verified, and will be placed.
[2019-02-10] MEDS: TEMAZEPAM 15 MG CAP PO SCH (21:52)
[2019-02-10] MEDS: LORazepam 0.5 MG TAB PO PRN (21:52)
[2019-02-10] MEDS: PRAVASTATIN SODIUM 20 MG TAB PO SCH (21:56)
[2019-02-11] MEDS: InsuLIN REG 1unit/0.01ml Soln (100units/ml) SC SCH ×5 (02:34→17:38)
[2019-02-11 04:56] VITALS: BP 160/90
[2019-02-11 06:00] LABS: Basophils # (auto) 0.1 uL; Eosinophils # (auto) 0.1 uL; Neutrophils # (auto) 6.3 uL; Nucleated Red Blood Cells % 0.1 %
[2019-02-11 06:04] LABS: Basophils % (auto) 0.9 % (0.0-2.0); Eosinophils % (auto) 0.8 % (0.0-7.0); Hematocrit 36.8 % (36.0-46.0); Lymphocytes # (auto) 2.5 uL; Lymphocytes % (auto) 26.2 % (10.0-50.0); Mean Corpuscular Hemoglobin 25.9 pg (28.0-32.0); Mean Corpuscular Hgb Conc. 32.8 g/dL (32.0-36.0); Mean Corpuscular Volume 79.2 fL (80.0-100.0); Monocytes # (auto) 0.7 uL; Monocytes % (auto) 7.5 % (0.0-12.0); Neutrophils % (auto) 64.6 % (37.0-80.0); Platelet Count (auto) 628 10^3/uL (140-450); Red Blood Cells 4.64 10^6/uL (4.0-5.20); Red Cell Distribution Width 17.4 % (11.8-14.3); White Blood Cell 9.7 10^3/uL (4.4-10.8)
[2019-02-11 06:16] LABS: Potassium 3.7 mmol/L (3.5-5.1)
[2019-02-11 06:23] LABS: BUN/Creatinine Ratio 19.7; Calcium 9.3 mg/dL (8.5-10.1)
[2019-02-11] MEDS: ACCU-CHEK COMFORT CURVE STRIP VI SCH ×3 (06:40→17:13)
[2019-02-11] MEDS: HYDROcodone-ACET 5/325MG TAB PO PRN (06:54)
[2019-02-11] MEDS ORDERED: LEVOTHYROXINE SODIUM 50 MCG TAB PO SCH (07:00)
[2019-02-11 09:00] VITALS: BP 162/93
[2019-02-11] MEDS: LEVOFLOXACIN 500MG 100 ML IV SCH (09:28)
[2019-02-11] MEDS: BENAZEPRIL HCL 10 MG TAB PO SCH (09:29)
[2019-02-11] MEDS: amLODIPine BESYLATE 5 MG TAB PO SCH (09:30)
[2019-02-11] MEDS: METOPROLOL TARTRATE 50 MG TAB PO SCH (09:30)
[2019-02-11] MEDS: QUEtiapine FUMARATE 100 MG TAB PO SCH (09:38)
[2019-02-11] MEDS: PANTOPRAZOLE 40 MG TAB PO SCH (09:38)
[2019-02-11] MEDS: LORazepam 0.5 MG TAB PO PRN (09:58)
[2019-02-11 13:00] VITALS: BP 146/83
[2019-02-11 17:07] VITALS: BP 157/84
[2019-02-11] MEDS ORDERED: BENA10TA9 PO (19:18)
[2019-02-11] MEDS ORDERED: LEVO500T21 PO (19:18)
[2019-02-11] MEDS ORDERED: AML5T PO (19:18)
[2019-02-11] MEDS ORDERED: MET50T PO (19:18)
[2019-02-11 19:51] VITALS: BP 135/78
--- NOTE | 2019-02-11 20:37 | NUR ---
Discharge instructions given as ordered. Encourage to follow up with PMD and make an appointment in the Am when MD's office opens. All questions answered. IV removed with catheter intact, pressure dressing applied. Telemetry unit returned to [facility]. Patient taken to vehicle via wheelchair with all personal belongings, accompanied by staff and son. No distress noted at time of departure.
== END 2019-02-11 20:37 | disposition home or self-care (01) | DRG 199 ==
LOC: ER 09:01 → TELE 12:49 → ICU WEST 15:23 → TELE-WESTW 02-10 15:33
PROVIDERS: ADMIT Nurse Practitioner Acute Care; ATTEND Internal Medicine
DX: I16.0 Hypertensive urgency (principal); J18.9 Pneumonia, unspecified organism; R65.10 Systemic inflammatory response syndrome (SIRS) of non-infectious origin without acute organ dysfunction; E11.65 Type 2 diabetes mellitus with hyperglycemia; K57.30 Diverticulosis of large intestine without perforation or abscess without bleeding; K76.0 Fatty (change of) liver, not elsewhere classified; N39.0 Urinary tract infection, site not specified; I16.9 Hypertensive crisis, unspecified; F31.9 Bipolar disorder, unspecified; K44.9 Diaphragmatic hernia without obstruction or gangrene; I10 Essential (primary) hypertension; E03.9 Hypothyroidism, unspecified; E78.5 Hyperlipidemia, unspecified; H54.7 Unspecified visual loss; D47.3 Essential (hemorrhagic) thrombocythemia
CPT/HCPCS: 36415; 51702; 71045; 74176; 80048; 80053; 80061; 81001; 82962; 83036; 84443; 84484; 85025; 87081; 87086; 93005; 96361; 96365; 96375; 96376; G0378; J0696; J1815; J1956; J2405